=== PATIENT | female | born 1965 | race Asian ===

== ENCOUNTER 2018-11-03 10:43 | Day surgery (SDC) | payer BC ==
[2018-11-03 09:36] LABS: Specific Gravity <= 1.005 (1.005-1.030)
[2018-11-03] MEDS ORDERED: Ringers Lactate 1,000 ML IV ONE (11:00)
[2018-11-03] MEDS ORDERED: LIDOCAINE 1% W/EPI 1:100,000 MDV 50 ML VIAL ONE (12:27)
[2018-11-03] MEDS ORDERED: MIDAZOLAM HCL 2 MG/2 ML INJ ONE (12:41)
[2018-11-03] MEDS ORDERED: FENTANYL CITR 100 MCG/2 ML ONE (12:41)
[2018-11-03] MEDS ORDERED: PROPOFOL 200 MG/20 ML VIAL IV ONE (12:41)
[2018-11-03] MEDS ORDERED: ONDANSETRON 4 MG/2 ML VIAL ONE (12:43)
[2018-11-03] MEDS ORDERED: LIDOCAINE 1% MPF 2 ML AMPULE ONE (12:43)
[2018-11-03] MEDS ORDERED: KETOROLAC 30 MG/ML INJ ONE (13:21)
--- NOTE | 2018-11-04 01:43 | OP ---
Date of Procedure: 11/03/2018 Surgeon: Ivette Navarro MD Preoperative Diagnoses: Irregular bleeding and possible endometrial mass. Postoperative Diagnoses: Subendometrial mass and irregular periods. Procedure Performed: Hysteroscopy and dilation and curettage. Anesthesia: General with LMA. Specimens: Endometrial curettings. Complications: No complications. Drains: No drains. Condition: Stable. Findings: Intracavitary examination was done thoroughly with a hysteroscope. No intracavitary lesio ns were seen. The endometrium appeared to be unremarkable. Both tubal ostia were well visualized. After confirming there was no endometrial mass, endometrial curettings were performed adequately. The patient is a 52-year-old with irregular, infrequent, key maker periods for the past 12 months with no prior history of heavy bleeding or any prior diagnoses of endometrial abnormalities including fibr oids or polyps. She had left lower quadrant pain for which she had a transvaginal ultrasound. The p ain was intermittent and minor. However, a scan appears to have been done to rule out adnexal mass. A uterine abnormality was found, a 2.1 cm heterogeneous area was detected in the endometrial canal. The differential diagnosis was a polyp or a fibroid clinically. After reviewing the pictures, after consenting the patient for endometrial cavity visualization and polypectomy, if a polyp was present, she was taken to the OR. Her left lower quadrant pain was minor and no other adnexal masses were see n. Both ovaries were well visualized on the imaging. Description Of Procedure: After informed consent was verified, she was taken back to the OR. Genera l anesthesia was given. She was placed in a dorsal lithotomy position using Abelardo stirrups. Pelvic exam performed, uterus anteflexed. No adnexal masses were noted. Again, prep x3 with Betadine was d one, anterior lip grasped with single-tooth tenaculum. Diagnostic SlimLine hysteroscope was used to enter the cervical canal under direct visualization. The cavity was entered and visualized. Both tu bal ostia were well visualized. No endometrial masses were seen. The endometrium appeared to be unr emarkable and completely smooth. The scope was removed. Curettings were performed after dilating the cervix to 10-[place] with a 0 curette. Adequate sampling was performed. Instruments were removed. Instrument, needle, and sponge counts were done and were correct at the end of the case. The specime n was handed out for permanent pathology. The patient was recovered from anesthesia in the OR and ta shilpi to PACU in stable condition. She will follow up with me in 1 week. She would need further follo wup for her sonographic finding, possibly repeat an ultrasound in 6 months and if there is any other abnormality in her bleeding pattern or the amount of flow or pain, then we can discuss further steps that could be taken if this seems to be related. At this time, I do believe that this could be a [place]ering[place] rine fibroid present in a subendometrial location with calcifications without any symptomatology this could be left alone in this perimenopausal patient. JEANINE/ZEENAT Voice ID: [id number] Report ID: [id number]
== END 2018-11-03 15:09 | disposition home or self-care (01) ==
LOC: OR 10:43
PROVIDERS: ATTEND Obstetrics & Gynecology
PROC: 0UDB8ZX Extraction of Endometrium, Via Natural or Artificial Opening Endoscopic, Diagnostic (ICD-10-PCS; principal; 2018-11-03 12:30)
DX: N85.00 Endometrial hyperplasia, unspecified (principal); N92.6 Irregular menstruation, unspecified; N95.1 Menopausal and female climacteric states
CPT/HCPCS: 36415; 80048; 81025; 88305; J2001; J2250; J2405; J2704; J3010